=== PATIENT | female | born 1960 | race Caucasian/White ===

== ENCOUNTER 2022-02-08 09:48 | Outpatient (CLI) | payer OTHER ==
--- NOTE | 2022-02-08 17:33 | DEXA Report ---
PROCEDURE: Dexa Spine and/or Hip INDICATIONS: POST MENOPAUSAL TECHNIQUE: Dual energy x-ray absorptiometry (DXA) was performed on a Intellution System. Regions measur ed are the AP Spine, femoral neck, and if needed forearm. COMPARISON: None. FINDINGS: Lumbar Spine: Bone Mineral Density 1.1-5 g/cm/cm,T score -0.5, normal Left Hip: Bone Mineral Density 0.833 g/cm/cm,T score -1.4, osteopenia Left Femoral Neck: Bone Mineral Density 0.766 g/cm/cm, T score -2.0, osteopenia (T score greater or equal to -1.0: NORMAL) (T score from -1.1 to -2.4: OSTEOPENIA) (T score less than or equal to -2.5 to: OSTEOPOROSIS) Impression: Osteopenia. Patients with diagnosis of osteoporosis or osteopenia should have regular bone mineral density assess ment. For those eligible for Medicare, routine testing is allowed once every 2 years. Testing frequ ency can be increased for patients who have rapidly progressing disease or for those who are receivin g medical therapy to restore bone mass. Reviewed by: Nasra Jolly MD, PhD on 02/08/2022 5:31 PM PDT Approved by: Nasra Jolly MD, PhD on 02/08/2022 5:31 PM PDT Station ID: [id number]
== END 2022-02-08 09:49 | disposition home or self-care (01) ==
LOC: DI 09:48
PROVIDERS: ATTEND Physician Assistant
DX: M85.89 Other specified disorders of bone density and structure, multiple sites (principal); Z78.0 Asymptomatic menopausal state

== ENCOUNTER 2022-03-08 08:42 | Outpatient (CLI) | payer OTHER ==
--- NOTE | 2022-03-17 14:50 | Mammography Report ---
BILATERAL DIGITAL SCREENING MAMMOGRAM 3D/2D: 03/08/2022 CLINICAL: Routine screening. No prior exams were available for comparison. The tissue of both breasts is heterogeneously dense. T his may lower the sensitivity of mammography. No significant masses, calcifications, or other findings are seen in either breast. IMPRESSION: NEGATIVE There is no mammographic evidence of malignancy. A 1 year screening mammogram is recommended. Based on the Tyrer Cuzick model (a risk assessment model) the patients lifetime risk is 9.3% and her 10 year risk is 3.9%. According to the ACR, ACS, and NCCN guidelines, an annual breast MRI exam maryanne g with mammogram is recommended if the patients lifetime risk is 20% or greater. This exam was interpreted at Station ID: [id number]. NOTE: For mammograms, a report in lay terms will be sent to the patient. Approximately 15% of breast malignancies will not be visualized mammographically. In the management of a palpable breast mass, a negative mammogram must not discourage biopsy of a clinically suspicious lesion. Electronically Signed By: Campbell louis/tobias:03/17/2022 07:46:13 ACR BI-RADS Category 1: Negative 3341F PARENCHYMAL PATTERN: (D) - The breast(s) demonstrate(s) heterogeneously dense fibroglandular cierra galvan. BI-RADS CATEGORY: (1) - 1 RECOMMENDATION: (ANNUAL) - Recommend routine annual screening mammography. [id number] 1 year screening LATERALITY: (B)
== END 2022-03-08 08:43 | disposition home or self-care (01) ==
LOC: DI.N 08:42
PROVIDERS: ATTEND Physician Assistant
DX: Z12.31 Encounter for screening mammogram for malignant neoplasm of breast (principal)

== ENCOUNTER 2022-06-16 07:20 | Day surgery (SDC) | payer OTHER ==
[2022-06-16] MEDS ORDERED: LACTATED RINGERS 1,000 ML IV ONE ×2 (07:24→09:23)
[2022-06-16] MEDS ORDERED: PROPOFOL 500 MG/50 ML 500 MG/50 ML VIAL ONE (07:51)
[2022-06-16] MEDS ORDERED: PROPOFOL 200 MG/20 ML VIAL IVP ONE (07:51)
--- NOTE | 2022-06-16 07:59 | ANESTHESIA ---
Pre-Anesthesia VS, & Labs - Diagnosis screening - Procedure colonoscopy Vital Signs: Temp Pulse Resp BP Pulse Ox O2 Flow Rate 36.2 C L 56 L 20 122/75 100 06/16/22 07:33 06/16/22 07:33 06/16/22 07:33 06/16/22 07:33 06/16/22 07:33 Height: 5 ft 7 in Weight (kg): 80.4 kg Body Mass Index: 27.7 BMI Classification: Overweight - NPO >8 hours Last Fluid Intake: am prep - Is Patient ?: No - Lab Results Lab results reviewed: Yes Home Medications and Allergies Home Medications: Ambulatory Orders No Known Home Medications 06/15/22 No Known Home Medications 06/15/22 Allergies/Adverse Reactions: Allergies Allergy/AdvReac Type Severity Reaction Status Date / Time Sulfa (Sulfonamide Allergy Hives Verified 06/15/22 11:01 Antibiotics) Anes History & Medical History - Anesthetic History Anesthesia Complications: reports: No previous complications Family history of Anesthesia Complications: Denies Family history of Malignant Hyperthermia: Denies - Medical History Cardiovascular: reports: None Pulmonary: reports: None Gastrointestinal: reports: None Urinary: reports: None Musculoskeletal: reports: None Endocrine/Autoimmune: reports: None Skin: reports: None History of Cancer?: No - Surgical History General: reports: Colonoscopy Gynecologic: reports: Endometrial ablation Exam General: Alert, Oriented x3, Cooperative Dental: WNL Mouth Openin Fingerbreadth Neck Mobility: Normal Mallampati classification: II Thyromental Distance: 4-6 cm Respiratory: Lungs clear, Normal breath sounds, No respiratory distress Cardiovascular: Regular rate Neurological: Normal speech Mental/Cognitive Status: Alert/Oriented X3, Normal for patient Cognitive Status: Within normal limits Plan Anesthesia Type: Total IV Consent for Procedure(s) Verified and Reviewed: Yes Code Status: Attempt Resuscitation ASA classification: 1-Healthy patient Is this case an emergency?: No
[2022-06-16] MEDS ORDERED: MIDAZOLAM 2 MG/2 ML VIAL ONE (08:04)
[2022-06-16] MEDS ORDERED: ONDANSETRON 4 MG/2 ML VIAL ONE (09:49)
[2022-06-16 10:02] VITALS: BP 109/70
--- NOTE | 2022-06-16 12:15 | ANESTHESIA POST OP EVALUATION ---
Anesthesia Post Eval - Post Anesthesia Eval Vitals: Last Vital Signs Temp 36.5 C 06/16/22 10:00 Pulse 65 06/16/22 10:00 Resp 16 06/16/22 10:00 BP 109/70 06/16/22 10:00 Pulse Ox 99 06/16/22 10:00 O2 Flow Rate CV Function Including HR & BP: Stable Pain Control: Satisfactory Nausea & Vomiting: Negative Mental Status: Baseline Respiratory Status: Airway Patent Hydration Status: Satisfactory Anesthesia Complications: None
== END 2022-06-16 07:21 | disposition home or self-care (01) ==
LOC: SDS 07:20
PROVIDERS: ATTEND Surgery
PROC: 0DBN8ZX Excision of Sigmoid Colon, Via Natural or Artificial Opening Endoscopic, Diagnostic (ICD-10-PCS; 2022-06-16)
PROC: 0DBM8ZX Excision of Descending Colon, Via Natural or Artificial Opening Endoscopic, Diagnostic (ICD-10-PCS; principal; 2022-06-16 08:30)
DX: Z12.11 Encounter for screening for malignant neoplasm of colon (principal); D12.5 Benign neoplasm of sigmoid colon; D12.4 Benign neoplasm of descending colon; K57.30 Diverticulosis of large intestine without perforation or abscess without bleeding
CPT/HCPCS: 45380; 45385; J7120

== ENCOUNTER 2023-01-17 07:20 | Outpatient (CLI) | payer OTHER ==
[2023-01-17 07:36] LABS: BASOPHILS # (AUTO) 0.1 10^3/uL (0.0-0.1); BASOPHILS % (AUTO) 0.9 %; EOSINOPHILS # (AUTO) 0.3 10^3/uL (0.0-0.7); EOSINOPHILS % (AUTO) 3.9 %; HCT - HEMATOCRIT 41.9 % (37.0-47.0); HGB - HEMOGLOBIN 13.8 g/dL (12.0-16.0); LYMPHOCYTES # (AUTO) 2.7 10^3/uL (1.5-3.5); LYMPHOCYTES % (AUTO) 34.7 %; MEAN CORPUSCULAR HGB CONC 32.9 g/dL (32.0-36.0); MEAN CORPUSCULAR VOLUME 94.2 fL (81.0-99.0); MONOCYTES # (AUTO) 0.6 10^3/uL (0.0-1.0); MONOCYTES % (AUTO) 7.4 %; NEUTROPHILS # (AUTO) 4.1 10^3/uL (1.5-6.6); NEUTROPHILS % (AUTO) 52.8 %; PLT - PLATELET COUNT 323 10^3/uL (130-450); RED BLOOD COUNT 4.45 10^6/uL (4.20-5.40); RED CELL DISTRIBUTION WIDTH 12.7 % (12.0-15.0); WHITE BLOOD COUNT 7.8 x10^3/uL (4.8-10.8)
[2023-01-17 07:58] LABS: ALBUMIN 4.1 g/dL (3.2-5.5); ALBUMIN/GLOBULIN RATIO 1.4 (1.0-2.2); ALKALINE PHOSPHATASE 50 IU/L (42-121); ALT ALANINE AMINOTRANSFERASE 29 IU/L (10-60); AST ASPARTATE AMINOTRANSFERASE 25 IU/L (10-42); BILIRUBIN,TOTAL 0.8 mg/dL (0.2-1.0); BUN - BLOOD UREA NITROGEN 12 mg/dL (6-20); CARBON DIOXIDE - CO2 27 mmol/L (21-32); CHLORIDE 105 mmol/L (101-111); CHOL/HDL RATIO 3.5 (<4.4); CHOLESTEROL 242 mg/dL; CREATININE 0.9 mg/dL (0.4-1.0); GFR - MDRD 63 (>89); GLUCOSE 97 mg/dL (70-100); HDL CHOLESTEROL 69 mg/dL; LDL CHOLESTEROL,CALCULATED 157 mg/dL; LDL/HDL RATIO 2.3 (<4.4); SODIUM 142 mmol/L (135-145); TRIGLYCERIDES 79 mg/dL; VLDL CHOLESTEROL 16 mg/dL
[2023-01-17 08:05] LABS: THYROID STIMULATING HORMONE 6.03 uIU/mL (0.34-5.60)
[2023-01-17 08:40] LABS: FREE T4 (FREE THYROXINE) 0.76 ng/dL (0.58-1.64)
--- NOTE | 2023-01-17 12:39 | XRAY Report ---
PROCEDURE: Knee 4 View BILAT INDICATIONS: KNEE JOINT PAIN TECHNIQUE: 4 views of the bilateral knee(s) were acquired. COMPARISON: None. FINDINGS: Bones: No fractures or dislocations. No suspicious bony lesions. There is mild to moderate relati vely symmetric tricompartmental arthritic change bilaterally most severe medially. Small periarticula r osteophytes are present. No erosions. Soft tissues: No knee joint effusion. No suspicious soft tissue calcifications or masses. IMPRESSION: Bilateral mild to moderate tricompartmental arthritic change most severe medially. Reviewed by: Alecia Morel MD on 01/17/2023 12:38 PM PDT Approved by: Alecia Morel MD on 01/17/2023 12:38 PM PDT Station ID: [id number]
== END 2023-01-17 07:21 | disposition home or self-care (01) ==
LOC: DI 07:20
PROVIDERS: ATTEND Physician Assistant
DX: M17.0 Bilateral primary osteoarthritis of knee (principal); Z13.9 Encounter for screening, unspecified; Z13.220 Encounter for screening for lipoid disorders; M85.80 Other specified disorders of bone density and structure, unspecified site; Z13.29 Encounter for screening for other suspected endocrine disorder
CPT/HCPCS: 36415; 80053; 80061; 82306; 83721; 84439; 84443; 85025

== ENCOUNTER 2024-03-26 08:16 | Outpatient (CLI) | payer OTHER ==
[2024-03-26 08:30] LABS: BASOPHILS # (AUTO) 0.1 10^3/uL (0.0-0.1); BASOPHILS % (AUTO) 1.5 %; EOSINOPHILS # (AUTO) 0.3 10^3/uL (0.0-0.7); EOSINOPHILS % (AUTO) 3.6 %; HCT - HEMATOCRIT 43.9 % (37.0-47.0); LYMPHOCYTES # (AUTO) 2.7 10^3/uL (1.5-3.5); LYMPHOCYTES % (AUTO) 38.5 %; MEAN CORPUSCULAR HEMOGLOBIN 29.9 pg (27.0-31.0); MEAN CORPUSCULAR HGB CONC 31.9 g/dL (32.0-36.0); MEAN CORPUSCULAR VOLUME 93.6 fL (81.0-99.0); MEAN PLATELET VOLUME 10.5 fL (7.9-10.8); MONOCYTES # (AUTO) 0.4 10^3/uL (0.0-1.0); MONOCYTES % (AUTO) 6.4 %; NEUTROPHILS # (AUTO) 3.4 10^3/uL (1.5-6.6); NEUTROPHILS % (AUTO) 49.9 %; PLT - PLATELET COUNT 308 10^3/uL (130-450); RED BLOOD COUNT 4.69 10^6/uL (4.20-5.40); RED CELL DISTRIBUTION WIDTH 12.5 % (12.0-15.0); WHITE BLOOD COUNT 6.9 x10^3/uL (4.8-10.8)
[2024-03-26 09:09] LABS: THYROID STIMULATING HORMONE 4.24 uIU/mL (0.34-5.60)
[2024-03-26 09:14] LABS: ALBUMIN 4.3 g/dL (3.2-5.5); ALBUMIN/GLOBULIN RATIO 1.7 (1.0-2.2); ALKALINE PHOSPHATASE 58 IU/L (42-121); ALT ALANINE AMINOTRANSFERASE 14 IU/L (10-60); AST ASPARTATE AMINOTRANSFERASE 15 IU/L (10-42); BILIRUBIN,TOTAL 0.5 mg/dL (0.2-1.0); BUN - BLOOD UREA NITROGEN 10 mg/dL (6-20); CALCIUM 9.3 mg/dL (8.5-10.3); CARBON DIOXIDE - CO2 28 mmol/L (21-32); CHLORIDE 106 mmol/L (101-111); CHOL/HDL RATIO 4.7 (<4.4); CHOLESTEROL 247 mg/dL; CREATININE 0.9 mg/dL (0.6-1.3); GFR - MDRD 63 (>89); GLUCOSE 90 mg/dL (74-104); HDL CHOLESTEROL 53 mg/dL; LDL CHOLESTEROL,CALCULATED 173 mg/dL; LDL/HDL RATIO 3.3 (<4.4); SODIUM 139 mmol/L (135-145); TOTAL PROTEIN 6.8 g/dL (6.4-8.9); TRIGLYCERIDES 104 mg/dL; VLDL CHOLESTEROL 21 mg/dL
== END 2024-03-26 08:17 | disposition home or self-care (01) ==
LOC: LAB 08:16
PROVIDERS: ATTEND Physician Assistant
DX: E78.5 Hyperlipidemia, unspecified (principal); R94.6 Abnormal results of thyroid function studies; Z13.9 Encounter for screening, unspecified
CPT/HCPCS: 36415; 80053; 80061; 83721; 84439; 84443; 85025

== ENCOUNTER 2024-05-15 10:16 | Outpatient (CLI) | payer OTHER ==
--- NOTE | 2024-05-15 15:30 | Mammography Report ---
BILATERAL DIGITAL SCREENING MAMMOGRAM 3D/2D: 05/15/2024 CLINICAL: Routine screening. Comparison is made to exam dated: 03/08/2022 mammogram - [facility]. The breasts are heterogeneously dense, which may obscure small masses (category c / 51-75% glandular tissue). No significant masses, calcifications, or other findings are seen in either breast. There has been no significant interval change. IMPRESSION: NEGATIVE There is no mammographic evidence of malignancy. A 1 year screening mammogram is recommended. Based on the Tyrer Cuzick model (a risk assessment model) the patient's lifetime risk is 8.5% and her 10 year risk is 3.9%. According to the ACR, ACS, and NCCN guidelines, an annual breast MRI exam maryanne g with mammogram is recommended if the patient's lifetime risk is 20% or greater. This exam was interpreted at Station ID: [id number]. NOTE: For mammograms, a report in lay terms will be sent to the patient. Approximately 15% of breast malignancies will not be visualized mammographically. In the management of a palpable breast mass, a negative mammogram must not discourage biopsy of a clinically suspicious lesion. Electronically Signed By: Sharri bob/penrad:05/15/2024 13:17:29 ACR BI-RADS Category 1: Negative 3341F PARENCHYMAL PATTERN: (D) - The breast(s) demonstrate(s) heterogeneously dense fibroglandular cierra galvan. BI-RADS CATEGORY: (1) - 1 RECOMMENDATION: (ANNUAL) - Recommend routine annual screening mammography. [id number] 1 year screening LATERALITY: (B)
== END 2024-05-15 10:17 | disposition home or self-care (01) ==
LOC: DI.N 10:16
DX: Z12.31 Encounter for screening mammogram for malignant neoplasm of breast (principal); R92.333 Mammographic heterogeneous density, bilateral breasts